=== PATIENT | female | born 1990 | race Hispanic/Latino ===

== ENCOUNTER 2017-04-01 19:04 | Emergency (ER) | payer OTHER ==
[2017-04-01 19:13] VITALS: BP 142/88; PULSE 75; RESP 18; TEMP 97.8; O2SAT 99
--- NOTE | 2017-04-01 19:33 | ED PDOC ---
HPI: Skin/Bite Injury Time Seen by Provider: 04/01/17 19:13 Chief Complaint (Nursing): Abnormal Skin Integrity Chief Complaint (Provider): Skin Laceration History Per: Patient History/Exam Limitations: no limitations Additional Complaint(s): 26 y/o female presents to the emergency department with a complaint of a cut to the right 3rd finger prior to arrival while cutting bread. Received tetanus shot about 5 years ago. Denies having stitches in the past, any active bleeding at the moment, fever, or loss of consciousness. Past Medical History Reviewed: Historical Data, Nursing Documentation, Vital Signs Vital Signs: Last Vital Signs Temp 97.8 F 04/01/17 19:11 Pulse 75 04/01/17 19:11 Resp 18 04/01/17 19:11 BP 142/88 04/01/17 19:11 Pulse Ox 99 04/01/17 19:51 - Medical History PMH: No Chronic Diseases Denies: Chronic Kidney Disease - Surgical History Surgical History: No Surg Hx - Family History Family History: States: Unknown Family Hx - Social History Current smoker - smoking cessation education provided: No Alcohol: None Drugs: Denies - Allergies Allergies/Adverse Reactions: Allergies Allergy/AdvReac Type Severity Reaction Status Date / Time amoxicillin Allergy RASH Verified 04/01/17 19:13 Review of Systems ROS Statement: Except As Marked, All Systems Reviewed And Found Negative (As per HPI, otherwise negative) Constitutional: Negative for: Fever, Other (No active bleeding or loss of consciousness) Skin: Positive for: Other (0.5 cm laceration to the right 3rd finger) Physical Exam - Reviewed Nursing Documentation Reviewed: Yes Vital Signs Reviewed: Yes - Physical Exam Appears: Positive for: Non-toxic, No Acute Distress Head Exam: Positive for: ATRAUMATIC, NORMAL INSPECTION, NORMOCEPHALIC Skin: Positive for: Normal Color, Warm, Dry Extremity: Positive for: Normal ROM, Other (0.5 cm laceration to the 3rd digit of the right hand. ) Neurologic/Psych: Positive for: Alert, Oriented (x3) - ECG O2 Sat by Pulse Oximetry: 99 (RA) Pulse Ox Interpretation: Normal Medical Decision Making Medical Decision Making: Time: 1924 Initial impression: Skin Laceration Initial plan: --Clean wound with Betadine --Dermabond application Time: 1940 --Percocet 5/325 mg PO Time: 1948 Upon provider reevaluation patient is feeling better, is medically stable, and requires no further treatment in the ED at this time. Patient will be discharged home. Counseling was provided and all questions were answered regarding diagnosis. There is agreement to discharge plan. Return if symptoms persist or worsen. Clinical Impression: Laceration Scribe Attestation: Documented by Lexi Chandler, acting as a scribe for Reina Flor PA-C Provider Scribe Attestation: All medical record entries made by the Scribe were at my direction and personally dictated by me. I have reviewed the chart and agree that the record accurately reflects my personal performance of the history, physical exam, medical decision making, and the department course for this patient. I have also personally directed, reviewed, and agree with the discharge instructions and disposition. Disposition - Clinical Impression Clinical Impression: Laceration Counseled Patient/Family Regarding: Diagnosis - Disposition Disposition: Routine/Home Disposition Time: 19:49 Condition: STABLE Instructions: Skin Adhesive Care (ED) Forms: [facility] (Croatian)
[2017-04-01] MEDS: Oxycodone/Acetaminophen 5/325 mg Tab PO STA (19:44)
[2017-04-01] MEDS ORDERED: Oxycodone/Acetaminophen 5/325 mg Tab ONE (19:44)
== END 2017-04-01 19:52 | disposition home or self-care (01) ==
LOC: H.ER 19:04
DX: S61.212A Laceration without foreign body of right middle finger without damage to nail, initial encounter (principal); W26.0XXA Contact with knife, initial encounter; Y92.89 Other specified places as the place of occurrence of the external cause